=== PATIENT | female | born 1950 | race Two or more races ===

== ENCOUNTER 2017-05-03 09:11 | Outpatient (CLI) | payer OTHER | END 2017-05-03 16:32 | disposition home or self-care (01) | LOC: SONOGRAMA 09:11 | DX: E04.1 Nontoxic single thyroid nodule (principal) ==

== ENCOUNTER 2021-03-16 08:34 | Outpatient (CLI) | payer OTHER | END 2021-03-16 08:36 | disposition home or self-care (01) | LOC: RX STUDY 08:34 | PROVIDERS: ATTEND Internal Medicine Gastroenterology | DX: K44.9 Diaphragmatic hernia without obstruction or gangrene (principal); K21.9 Gastro-esophageal reflux disease without esophagitis ==

== ENCOUNTER 2023-08-30 08:52 | Outpatient (CLI) | payer OTHER | END 2023-08-30 09:02 | disposition home or self-care (01) | LOC: TOM 08:52 | PROVIDERS: ATTEND Internal Medicine Gastroenterology | DX: K56.609 Unspecified intestinal obstruction, unspecified as to partial versus complete obstruction (principal); R19.7 Diarrhea, unspecified; K63.5 Polyp of colon ==